=== PATIENT | female | born 1965 | race Caucasian/White ===

== ENCOUNTER 2020-07-21 09:50 | Day surgery (SDC) | payer BC ==
[~2020-07-21] VITALS: Ht 175.3 cm; Wt 65.9 kg
[~2020-07-21 09:50] MED LIST: BAYER ADVANCED500 MG PO; CYCLOBENZAPRINE10 MG PO; GABAPENTIN300 MG PO; MELOXICAM15 MG PO; NORCO 7.5-3251 EACH PO; TRAMADOL HCL50 MG PO
[2020-07-21] MEDS ORDERED: VITAMIN B122500 MCG PO (10:10)
--- NOTE | 2020-07-21 15:40 | NUR ---
07/21/20 1540 Kayli Neal 0023-PATIENT ARIRVED TO PACU DROWSY ON 6L MASK RR EVEN. RIGHT ARM DRESSING CDI. PATIENT RESPONDS TO QUESTIONS APPROPRIATELY. PATIENT ABLE TO WIGGLE FINGERS ON RIGHT HAND REPORTS NUMBNESS. DENIES PAIN OR NAUSEA. ELEVATED ON PILLOW AND ICE APPLIED. SR.
[2020-07-21] MEDS ORDERED: IBUPROFEN600 MG PO (15:51)
[2020-07-21] MEDS ORDERED: ACETAMINOPHEN500 MG PO (15:51)
[2020-07-21] MEDS ORDERED: OXYCODON-ACETA1 EAC2 PO (15:51)
--- NOTE | 2020-07-23 17:33 | OR ---
[facility] [address], [place] [address] Signed DATE OF OPERATION: 07/21/2020 SURGEON: Jeff Castro MD PREOPERATIVE DIAGNOSIS: Right carpal tunnel syndrome. POSTOPERATIVE DIAGNOSIS: Right carpal tunnel syndrome. PROCEDURE: Right carpal tunnel release. ANESTHESIA: Right Garrett block (Rolando Chau CRNA, and local 5 mL of 0.25% Marcaine with epinephrine. INDICATION: This 55-year-old white woman is a patient of Dr. Tana Cochran. She has been found to have symptoms highly typical of right carpal tunnel syndrome including numbness and tingling of her right thumb, index, middle and radial side of her 4th finger. The patient notes that her arm "goes to sleep" as well with significant pain below the elbow. She awakens at night at least 3 to 4 times in relation to this. She underwent nerve conduction studies as well as an MRI of the neck. 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 Bulging discs were identified on the cervical spine as well based on the MRI. She is admitted at this time to undergo right carpal tunnel release. She understands the risk of bleeding, infection, failure to cure her symptoms entirely, median nerve injury including motor branch and other unforeseen complications, particularly considering she does have cervical disk disease as well. Understanding all this, she wished to proceed. FINDINGS: Transverse carpal ligament was easily identified and transected to the distal transverse wrist crease without problem under direct visualization. The underlying nerve had mild hyperemia, but no other abnormality, specifically no tumor or other problem. DESCRIPTION OF PROCEDURE: The patient was brought to the operating room and given a right-sided Viral block. Electronically Signed By: JEFF CASTRO MD 07/23/20 1733 PATIENT NAME: DEJA BORGES OPERATIVE REPORT DATE OF : 67 REPORT #: [id number] PHYSICIAN: JEFF CASTRO MD PCP: TANA COCHRAN MD REPORT IS CONFIDENTIAL AND NOT TO BE RELEASED WITHOUT AUTHORIZATION [facility] [address], [place] [address] Signed Preoperative antibiotic Ancef was given and sequential compression device stockings were used. The hand was prepared with a chlorhexidine solution and draped sterilely. A blue towel was rolled behind the wrist and the malleable of finger with a fixed retractor used to provide good exposure to the volar aspect of the right wrist. A curvilinear incision was made ulnar to the thenar crease. Dissection carried through the skin and subcutaneous tissue. She did have some discomfort with this and therefore local anesthetic was injected. A linear incision of the palmaris longus tendon was undertaken subsequently identifying the right transverse carpal ligament. This was incised under direct visualization with loupe magnification and in a small area allowing for placement of hemostat distally. The ligament was more fully transected with the underlying hemostat protecting the underlying nerve. This was carried down to the palmar fascia. Hemostat was removed and readjusted proximally and direct transection was undertaken proximally with a #15 blade as well. The more proximal transection was undertaken with tenotomy scissors without problem to the mid transverse wrist crease area. Direct visualization was used to avoid injury to the underlying nerve and avoiding any finding of a motor nerve branch to the thenar eminence. Minimal electrocautery was used to few muscle fibers of the thenar muscle group. Irrigation was undertaken. The nerve was examined posteriorly showing no sign of neuroma or other problem. The skin was then closed with interrupted 2-0 nylon suture in a vertical mattress configuration. Xeroform dressing was applied as was Flexicon, a cock-up wrist splint and ultimately an Thang wrap. Pressure was applied to the operative site and the tourniquet was taken down. Tourniquet time was 24 minutes in total. Tourniquet pressure was 250 mmHg. Pressure was applied until rubor returned to the fingers. She was transferred to recovery room, having suffered no complication. Sponge, needle, and instrument counts were correct x3. Blood loss was nil. Jeff Castro MD /MODL /[id number] cc: Tana Cochran MD Copies: TANA COCHRAN DMD Electronically Signed By: JEFF CASTRO MD 07/23/20 1733 PATIENT NAME: DEJA BORGES OPERATIVE REPORT DATE OF : 67 REPORT #: [id number] PHYSICIAN: JEFF CASTRO MD PCP: TANA COCHRAN MD REPORT IS CONFIDENTIAL AND NOT TO BE RELEASED WITHOUT AUTHORIZATION [address] [address] Signed ~ Electronically Signed By: JEFF CASTRO MD 07/23/20 1733 PATIENT NAME: DEJA BORGES MICHAEL OPERATIVE REPORT DATE OF : 67 REPORT #: [id number] PHYSICIAN: JEFF CASTRO MD PCP: TANA COCHRAN MD REPORT IS CONFIDENTIAL AND NOT TO BE RELEASED WITHOUT AUTHORIZATION
[2020-08-13] MEDS ORDERED: ULTRAM50 MG PO (16:34)
[2020-08-13] MEDS ORDERED: MAGNESIUM30 MG PO (16:34)
[2020-08-14] MEDS ORDERED: OXYCODON-ACETA1 EAC2 PO (10:10)
[2020-08-14] MEDS ORDERED: ACETAMINOPHEN500 MG PO (10:11)
== END 2020-07-21 16:30 | disposition home or self-care (01) ==
LOC: DS 09:50
PROVIDERS: ATTEND Surgery
PROC: 01N50ZZ Release Median Nerve, Open Approach (ICD-10-PCS; principal; 2020-07-21 11:35)
DX: G56.01 Carpal tunnel syndrome, right upper limb (principal); G89.4 Chronic pain syndrome; Z90.711 Acquired absence of uterus with remaining cervical stump; Z98.1 Arthrodesis status; Z79.1 Long term (current) use of non-steroidal anti-inflammatories (NSAID)
CPT/HCPCS: 01810; J0690; J2001; J2250; J2704; J7121

== ENCOUNTER 2024-03-21 07:55 | Day surgery (SDC) | payer MEDICARE ==
[2024-03-18 16:29] VITALS: BP 120/71
[~2024-03-21] VITALS: Ht 170.2 cm; Wt 57.7 kg
[~2024-03-21 07:55] MED LIST changes: +ACETAMINOPHEN500 MG PO; +BUPRENORPHINE1 EAC1 TD; +CEFAZOLIN SODIUM 2 GM/20 ML SYR IV SCH; +HYDROCODON-ACE1 EAC8 PO; +IBLOOD GLUCOSE TEST STRIP 1 EA TEST VI PRN; +IBUPROFEN600 MG PO; +LACTATED RINGER'S 1,000 ML IV SCH; +LIDOCAINE HCL 1% 5 ML SDV INJ ONE; +MAGNESIUM30 MG PO; +MIDAZOLAM HCL 5 MG/5 ML VIAL IV PRN; +OXYCODON-ACETA1 EAC2 PO; +ULTRAM50 MG PO; +VITAMIN B122500 MCG PO; +fentaNYL citrate 100 MCG/2 ML VIAL IV PRN
[2024-03-21 08:06] VITALS: BP 116/75
[2024-03-21] MEDS ORDERED: LIDOCAINE HCL 2% 5 ML SDV ONE (08:08)
[2024-03-21] MEDS ORDERED: propofoL 200 MG/20 ML VIAL ONE (08:08)
[2024-03-21 09:38] VITALS: BP 100/71
--- NOTE | 2024-03-26 07:11 | OR ---
[facility] [address] [place], [place] [address] Signed DATE OF OPERATION: 03/21/2024 SURGEON: Samir Munoz MD PREOPERATIVE DIAGNOSES: 1. Mother with colon cancer in her 60s. 2. Maternal great grandmother with rectal cancer. 3. Maternal great uncle with colon cancer. 4. Sister with colonic polyps in her 40s. 5. Personal history of hyperplastic colonic polyps in 2013 at age 48. 6. Melanosis coli. 7. Diverticulosis. POSTOPERATIVE DIAGNOSES: 1. Mild diffuse melanosis coli. 2. Minimal internal hemorrhoids. PROCEDURE: Colonoscopy without biopsy. ESTIMATED BLOOD LOSS: None. INDICATIONS: Maryse is a 58-year-old female, asked to see me for a follow up colonoscopy. Her mom was diagnosed with stage IV colon cancer in her 60s. Her mom has . She has a maternal great grandmother who had rectal cancer. Maternal great uncle also had colon cancer. Her sister had colonic polyps removed in her 40s. I had helped Maryse in 2013 at the age of 48 for her initial colonoscopy. She had hyperplastic polyps removed. Because of her back issues and her daily need for narcotic, she always needs monitored anesthesia care with propofol infusion. She is now on buprenorphine. The propofol worked out very nicely today. She now has a spinal cord stimulator and that also helped her significantly. She does still use a little marijuana and CBD oil but she has cut the narcotics way down. She came to us in 2019 at the age of 53. She had melanosis coli along with some diverticulosis. She is returning now for follow up colonoscopy. She has no lower GI complaints. In the office, I gave her a pamphlet on colonoscopy. She understands the nature of the test. There is risk including, but not limited to gas bloating, crampy abdominal pain, bleeding, perforation requiring surgery, and missed diagnosis. She also understands the need for monitored anesthesia care with propofol infusion given her past medical history. She had expressed understanding and wished to Electronically Signed By: SAMIR MUNOZ MD 03/26/24 0711 PATIENT NAME: MARYSE BORGES OPERATIVE REPORT DATE OF : 67 REPORT #: [id number] PHYSICIAN: SAMIR MUNOZ MD PCP: TANA COCHRAN MD REPORT IS CONFIDENTIAL AND NOT TO BE RELEASED WITHOUT AUTHORIZATION [facility] [address] [place] [id number] Signed proceed. PROCEDURE IN DETAIL: Maryse was taken into our endoscopy suite and placed in the left lateral decubitus position. She was given monitored anesthesia care with propofol infusion per our nurse logistician. A digital rectal exam was performed, this was unremarkable. There were really no external hemorrhoids. She has good sphincter tone. There were no masses. The adult colonoscope was introduced and advanced under direct visualization of the camera. Maryse is tall with long arms and legs and her colon is a bit long and it did take a little abdominal compression to get the scope slowly but surely around into the cecum itself. Her prep was quite excellent. We could easily see the appendiceal orifice and ileocecal valve. The scope was then slowly withdrawn. Once again, she has very mild tiger striping throughout her entire colon consistent with her melanosis coli. There were no polyps on this occasion. We did not see any diverticula on this occasion. Once in the rectum, the scope was retroflexed and she does have minimal internal hemorrhoid columns. After this, the gas was suctioned out and the colonoscope removed. Maryse tolerated the procedure quite well. RECOMMENDATIONS: Maryse can follow up in 10 years for repeat screening colonoscopy due to her family history. Samir Munoz MD ALB/MODL /[id number] cc: MD Tana Harris MD Copies: SAMIR MUNOZ MD Electronically Signed By: SAMIR MUNOZ MD 03/26/24 0711 PATIENT NAME: MARYSE BORGES OPERATIVE REPORT DATE OF : 67 REPORT #: [id number] PHYSICIAN: SAMIR MUNOZ MD PCP: TANA COCHRAN MD REPORT IS CONFIDENTIAL AND NOT TO BE RELEASED WITHOUT AUTHORIZATION [facility] [address] [place] [id number] Signed TANA COCHRAN DMD ~ Electronically Signed By: SAMIR MUNOZ MD 03/26/24 0711 PATIENT NAME: MARYSE BORGES MICHAEL OPERATIVE REPORT DATE OF : 67 REPORT #: [id number] PHYSICIAN: SAMIR MUNOZ MD PCP: TANA COCHRAN MD REPORT IS CONFIDENTIAL AND NOT TO BE RELEASED WITHOUT AUTHORIZATION
== END 2024-03-21 09:45 | disposition home or self-care (01) ==
LOC: DS 07:55
PROVIDERS: ATTEND Colon & Rectal Surgery
PROC: 0DJD8ZZ Inspection of Lower Intestinal Tract, Via Natural or Artificial Opening Endoscopic (ICD-10-PCS; principal; 2024-03-21 09:00)
DX: K64.8 Other hemorrhoids (principal); K57.90 Diverticulosis of intestine, part unspecified, without perforation or abscess without bleeding; K63.89 Other specified diseases of intestine; Z80.0 Family history of malignant neoplasm of digestive organs; Z86.0100 Personal history of colon polyps, unspecified; Z83.719 Family history of colon polyps, unspecified
CPT/HCPCS: 00811; J0690; J2704; J7121

== ENCOUNTER 2024-09-04 17:05 | Emergency (ER) | payer MEDICARE ==
[~2024-09-04] VITALS: Ht 170.2 cm; Wt 60.3 kg
[~2024-09-04 17:05] MED LIST changes: -CEFAZOLIN SODIUM 2 GM/20 ML SYR IV SCH; -IBLOOD GLUCOSE TEST STRIP 1 EA TEST VI PRN; -LACTATED RINGER'S 1,000 ML IV SCH; -LIDOCAINE HCL 1% 5 ML SDV INJ ONE; -MIDAZOLAM HCL 5 MG/5 ML VIAL IV PRN; -fentaNYL citrate 100 MCG/2 ML VIAL IV PRN
[2024-09-04 17:40] LABS: BASOPHILS 0.3 % (0-2); EOSINOPHILS 0.1 % (0-6); HEMATOCRIT 30.9 % (35.0-50.0); HEMOGLOBIN 10.6 g/dL (12.0-18.0); LYMPHOCYTES 4.8 % (24-44); MCH 30.5 (27-36); MCHC 34.3 g/dl (30-36); MONOCYTES 8.6 % (0-12); NEUTROPHILS 86.2 % (39-80); PLATELET COUNT 434 K/uL (140-440); RBC 3.47 M/ul (4.3-5.7); RDW 13.1 (10.5-15.0)
[2024-09-04 17:57] LABS: ALBUMIN 2.7 g/dL (3.4-5.0); ALBUMIN/GLOBULIN RATIO 0.64 (1.1-2.4); ANION GAP 14.4 (7-21); BILIRUBIN, TOTAL 0.9 mg/dL (0.2-1.0); BUN/CREATININE RATIO 17.04 (6.0-28.6); CALCIUM 9.1 mg/dL (8.5-10.1); CREATININE, SERUM 0.88 mg/dL (0.55-1.02); POTASSIUM 3.4 mmol/L (3.5-5.1); PROTEIN, TOTAL 6.9 g/dL (6.4-8.2)
[2024-09-04] MEDS ORDERED: CEFTRIAXONE SODIUM 1 GM VIAL IV ONE (19:46)
[2024-09-04] MEDS ORDERED: AMOX TR-K CLV1 EAC1 PO (19:53)
[2024-09-04] MEDS ORDERED: ZITHROMAX250 MG PO (19:53)
[2024-09-04] MEDS ORDERED: AZITHROMYCIN 250 MG TAB PO ONE (20:00)
[2024-09-04] MEDS ORDERED: CEFTRIAXONE SODIUM 1 GM in SODIUM CHLORIDE 0.9% 100 ML IV ONE (20:00)
[2024-09-04 20:57] VITALS: BP 121/73
--- NOTE | 2024-09-05 22:38 | EKG ---
[facility] [address] [place] [address] Signed Normal sinus rhythm Normal ECG When compared with ECG of 18-MAR-2024 16:36, No significant change was found Confirmed by Rakan Saxena MD () on 09/05/2024 10:37:57 PM Electronically Signed By: RAKAN SAXENA MD 09/05/24 2238 PATIENT NAME: DEJA BORGES MICHAEL Electrocardiogram DATE OF : 67 PHYSICIAN: RAKAN SAXENA MD REPORT #: [id number] REPORT IS CONFIDENTIAL AND NOT TO BE RELEASED WITHOUT AUTHORIZATION
== END 2024-09-04 20:57 | disposition home or self-care (01) ==
LOC: ED 17:05
PROVIDERS: Emergency Medicine
DX: J18.9 Pneumonia, unspecified organism (principal); Z88.1 Allergy status to other antibiotic agents
CPT/HCPCS: 36415; 71260; 80053; 84484; 85025; 85379; 93005; 93010; 99285-25; J0696; Q9967